=== PATIENT | female | born 1990 | race Caucasian/White ===

== ENCOUNTER 2020-02-14 22:25 | Emergency (ER) | payer OTHER ==
[~2020-02-14] VITALS: Ht 172.7 cm; Wt 102.2 kg
[2020-02-14 22:44] LABS: BASO # 0.2 x10^3/uL (0.0-0.2); BASO % 1 % (0-3); EOS % 0 % (0-3); HEMATOCRIT 44.6 % (36.0-47.0); HEMOGLOBIN 15.8 g/dL (12.0-15.5); LYMPH # 3.4 x10^3/uL (1.0-4.8); LYMPH % 26 % (24-48); MEAN CORPUSCULAR HEMOGLOBIN 30 pg (25-35); MEAN CORPUSCULAR HGB CONC 36 g/dL (31-37); MEAN CORPUSCULAR VOLUME 85 fL (79-100); MONO # 0.9 x10^3/uL (0.0-1.1); MONO % 7 % (0-9); NEUT # 8.9 x10^3/uL (1.8-7.7); NEUT % 66 % (31-73); PLATELET COUNT 268 x10^3/uL (140-400); RED BLOOD COUNT 5.22 x10^6/uL (3.50-5.40); RED CELL DISTRIBUTION WIDTH 13.1 % (11.5-14.5); WHITE BLOOD COUNT 13.5 x10^3/uL (4.0-11.0)
[2020-02-14 22:55] LABS: CALCIUM 8.8 mg/dL (8.5-10.1); CREATININE 1.1 mg/dL (0.6-1.0); GFR 59.1; POTASSIUM 3.2 mmol/L (3.5-5.1)
[2020-02-14 23:00] LABS: ALBUMIN 3.6 g/dL (3.4-5.0); ALBUMIN/GLOBULIN RATIO 0.9 (1.0-1.7); TOTAL BILIRUBIN 0.8 mg/dL (0.2-1.0); TOTAL PROTEIN 7.8 g/dL (6.4-8.2)
[2020-02-14] MEDS ORDERED: FAMOTIDINE 20 MG/2 ML VIAL IVP ONE (23:30)
[2020-02-14] MEDS ORDERED: diazePAM 2 MG TABLET PO ONE (23:30)
[2020-02-14] MEDS ORDERED: IV NORMAL SALINE 1000ML BAG 1,000 ML IV ONE (23:30)
--- NOTE | 2020-02-15 00:05 | PHYS DOC ---
Past Medical History Past Medical History: No Pertinent History Past Surgical History: No Surgical History Smoking Status: Never Smoker Alcohol Use: None General Adult EDM: Chief Complaint: VOMITING IN HPI: HPI: Patient is a 29 year old female who is currently G2, presents with a chief complaint of left-sided neck pain. Patient has a past medical history of hyperemesis gravidarum. She is currently on Zofran. Patient states she has been vomiting all day. She states she vomited prior to arrival and shortly after started experiencing left-sided neck spasms. Patient denies any pelvic complaints. Review of Systems: Review of Systems: Constitutional: Denies fever or chills. [] Eyes: Denies change in visual acuity. [] HENT: Denies nasal congestion or sore throat. [] Respiratory: Denies cough or shortness of breath. [] Cardiovascular: Denies chest pain or edema. [] GI: Denies abdominal pain, , bloody stools or diarrhea. [positive nausea and vomiting] : Denies dysuria. [ppsitive ] Musculoskeletal: Denies back pain or joint pain. [POSITIVE muscle spasm] Integument: Denies rash. [] Neurologic: Denies headache, focal weakness or sensory changes. [] Endocrine: Denies polyuria or polydipsia. [] Lymphatic: Denies swollen glands. [] Psychiatric: Denies depression or anxiety. [] Heart Score: Risk Factors: Risk Factors: DM, Current or recent (<one month) smoker, HTN, HLP, family history of CAD, obesity. Risk Scores: Score 0 - 3: 2.5% MACE over next 6 weeks - Discharge Home Score 4 - 6: 20.3% MACE over next 6 weeks - Admit for Clinical Observation Score 7 - 10: 72.7% MACE over next 6 weeks - Early Invasive Strategies Current Medications: Current Medications Medications (Trade) Dose Ordered Sig/Jina Start Time Stop Time Status Last Admin Dose Admin Diazepam (Valium) 2 mg 1X ONCE 02/14/20 23:30 02/14/20 23:31 DC 02/14/20 23:07 2 MG Famotidine (Pepcid Vial) 20 mg 1X ONCE 02/14/20 23:30 02/14/20 23:31 DC 02/14/20 23:06 20 MG Sodium Chloride 1,000 ml @ 1,000 mls/hr 1X ONCE 02/14/20 23:30 02/15/20 00:29 02/14/20 23:07 1,000 MLS/HR Allergies: Allergies: Allergies Coded Allergies Type Severity Reaction Last Updated Verified No Known Drug Allergies 02/14/20 No Physical Exam: PE: Constitutional: Well developed, well nourished, no acute distress, non-toxic appearance. [] HENT: Normocephalic, atraumatic, bilateral external ears normal, oropharynx moist, no oral exudates, nose normal. [] Eyes: PERRLA, EOMI, conjunctiva normal, no discharge. [] Neck: tenderness of palpation, muscle spasms Cardiovascular:Heart rate regular rhythm, no murmur [] Lungs & Thorax: Bilateral breath sounds clear to auscultation [] Abdomen: Bowel sounds normal, soft, no tenderness, no masses, no pulsatile masses. [] Skin: Warm, dry, no erythema, no rash. [] Back: No tenderness, no CVA tenderness. [] Extremities: No tenderness, no cyanosis, no clubbing, ROM intact, no edema. [] Neurologic: Alert and oriented X 3, normal motor function, normal sensory function, no focal deficits noted. [] Psychologic: Affect normal, judgement normal, mood normal. [] Current Patient Data: Labs: Laboratory Tests Test 02/14/20 22:28 White Blood Count 13.5 x10^3/uL (4.0-11.0) H Red Blood Count 5.22 x10^6/uL (3.50-5.40) Hemoglobin 15.8 g/dL (12.0-15.5) H Hematocrit 44.6 % (36.0-47.0) Mean Corpuscular Volume 85 fL (79-100) Mean Corpuscular Hemoglobin 30 pg (25-35) Mean Corpuscular Hemoglobin Concent 36 g/dL (31-37) Red Cell Distribution Width 13.1 % (11.5-14.5) Platelet Count 268 x10^3/uL (140-400) Neutrophils (%) (Auto) 66 % (31-73) Lymphocytes (%) (Auto) 26 % (24-48) Monocytes (%) (Auto) 7 % (0-9) Eosinophils (%) (Auto) 0 % (0-3) Basophils (%) (Auto) 1 % (0-3) Neutrophils # (Auto) 8.9 x10^3/uL (1.8-7.7) H Lymphocytes # (Auto) 3.4 x10^3/uL (1.0-4.8) Monocytes # (Auto) 0.9 x10^3/uL (0.0-1.1) Eosinophils # (Auto) 0.0 x10^3/uL (0.0-0.7) Basophils # (Auto) 0.2 x10^3/uL (0.0-0.2) Maternal Serum HCG Beta Subunit 809350 mIU/mL (0-5) H Sodium Level 135 mmol/L (136-145) L Potassium Level 3.2 mmol/L (3.5-5.1) L Chloride Level 97 mmol/L (98-107) L Carbon Dioxide Level 22 mmol/L (21-32) Anion Gap 16 (6-14) H Blood Urea Nitrogen 5 mg/dL (7-20) L Creatinine 1.1 mg/dL (0.6-1.0) H Estimated GFR (Cockcroft-Gault) 59.1 BUN/Creatinine Ratio 5 (6-20) L Glucose Level 116 mg/dL (70-99) H Calcium Level 8.8 mg/dL (8.5-10.1) Total Bilirubin 0.8 mg/dL (0.2-1.0) Aspartate Amino Transferase (AST) 34 U/L (15-37) Alanine Aminotransferase (ALT) 87 U/L (14-59) H Alkaline Phosphatase 101 U/L (46-116) Total Protein 7.8 g/dL (6.4-8.2) Albumin 3.6 g/dL (3.4-5.0) Albumin/Globulin Ratio 0.9 (1.0-1.7) L Laboratory Tests 02/14/20 22:28 Laboratory Tests 02/14/20 22:28 Vital Signs: Vital Signs Date Time Temp Pulse Resp B/P (MAP) Pulse Ox O2 Delivery O2 Flow Rate FiO2 02/14/20 22:25 98.5 118 20 157/86 (109) 98 Room Air 98.5 EKG: EKG: [] Radiology/Procedures: Radiology/Procedures: [] Course & Med Decision Making: Course & Med Decision Making Pertinent Labs and Imaging studies reviewed. (See chart for details) [] Was evaluated for chief complaint. Work-up consisted of laboratory analysis. Results reviewed and discussed with patient. Patient was found to have a potassium slightly decreased. Patient advised to continue taking her vitamins. Patient without any episodes of vomiting in the emergency department. Patient advised to continue taking her Zofran. Treatment included Tylenol for pain. Valium and Ativan for muscle spasms. Post treatment patient states she feels improved. Patient will be discharged home on Valium. Patient given p recautions regarding narcotic use during she is in full understanding of the risks such as dependence insomnia overuse leading to overdose. Dragon Disclaimer: Dragon Disclaimer: This electronic medical record was generated, in whole or in part, using a voice recognition dictation system. Departure Departure Impression: Primary Impression: Neck muscle spasm Additional Impressions: Hyperemesis Hypokalemia Disposition: HOME, SELF-CARE Condition: STABLE Referrals: SILVIA SARGENT MD (PCP) Patient Instructions: Hypokalemia, Muscle Strain, Spasticity Scripts Diazepam (VALIUM) 5 Mg Tablet 5 MG PO TID for spasm, #14 TAB Prov: DELVIN MONAHAN DO 02/15/20 Justicifation of Admission Dx: Justifications for Admission: Justification of Admission Dx: N/A DELVIN MONAHAN DO Feb 15, 2020 00:05
[2020-02-15 00:13] LABS: BILIRUBIN,URINE NEGATIVE (NEG); CLARITY,URINE CLEAR; COLOR,URINE YELLOW; NITRITE,URINE NEGATIVE (NEG); PH,URINE 6.5 (<5.0-8.0); PROTEIN,URINE NEGATIVE (NEG-TRACE); UROBILINOGEN,URINE 0.2 mg/dL (0.2 mg/dL)
[2020-02-15 00:23] LABS: AMORPHOUS SEDIMENT,UR PRESENT /HPF; RBC,URINE 0 /HPF (0-2); SQUAMOUS EPITHELIAL CELL,UR MOD /LPF; YEAST,URINE PRESENT /HPF
[2020-02-15 00:25] LABS: BACTERIA,URINE 0 /HPF (0-FEW)
[2020-02-15] MEDS ORDERED: DIAZ5TAB PO (00:50)
[2020-02-15 01:45] VITALS: BP 133/83
[2020-02-15] MEDS ORDERED: CEPH-264 PO (17:45)
[2020-02-15] MEDS ORDERED: PROM25SU33 RC (17:45)
== END 2020-02-15 01:49 | disposition home or self-care (01) ==
LOC: ER 22:25
DX: O21.9 Vomiting of pregnancy, unspecified (principal); M62.838 Other muscle spasm; M54.2 Cervicalgia; E87.6 Hypokalemia; Z79.899 Other long term (current) drug therapy; Z3A.00 Weeks of gestation of pregnancy not specified
CPT/HCPCS: 36415; 80053; 81001; 81025; 84702; 85025; 87086; 96361; 96374; 96375; 99285; J2060; J3490; J7030

== ENCOUNTER 2020-02-15 15:12 | Emergency (ER) | payer OTHER ==
[~2020-02-15] VITALS: Ht 172.7 cm; Wt 105.0 kg
[~2020-02-15 15:12] MED LIST: DIAZ5TAB PO
--- NOTE | 2020-02-15 15:57 | PHYS DOC ---
Past Medical History Past Medical History: No Pertinent History Past Surgical History: No Surgical History Smoking Status: Never Smoker Alcohol Use: None General Adult EDM: Chief Complaint: VOMITING IN HPI: HPI: Patient is a 29 year old female who is 9 weeks , presented to ER today for evaluation of nausea and vomiting. Patient denies any pelvic pain, no abdominal pain. Patient said this is her second . Patient was seen here last night for the same problem she is currently on Zofran and Reglan. Patient continues to have nausea vomiting so she went to see her [facility] [employer] doctor today who then sent her here so he can get her admitted to hospital for IV fluid. Patient denies any fever, no cough, no exposure to anybody who tested positive for COVID-19. Review of Systems: Review of Systems: Constitutional: Denies fever or chills. [] Eyes: Denies change in visual acuity. [] HENT: Denies nasal congestion or sore throat. [] Respiratory: Denies cough or shortness of breath. [] Cardiovascular: Denies chest pain or edema. [] GI: Denies abdominal pain, positive for nausea and vomiting : Denies dysuria. [] Musculoskeletal: Denies back pain or joint pain. [] Integument: Denies rash. [] Neurologic: Denies headache, focal weakness or sensory changes. [] Endocrine: Denies polyuria or polydipsia. [] Lymphatic: Denies swollen glands. [] Psychiatric: Denies depression or anxiety. [] Heart Score: Risk Factors: Risk Factors: DM, Current or recent (<one month) smoker, HTN, HLP, family history of CAD, obesity. Risk Scores: Score 0 - 3: 2.5% MACE over next 6 weeks - Discharge Home Score 4 - 6: 20.3% MACE over next 6 weeks - Admit for Clinical Observation Score 7 - 10: 72.7% MACE over next 6 weeks - Early Invasive Strategies Allergies: Allergies: Allergies Coded Allergies Type Severity Reaction Last Updated Verified No Known Drug Allergies 02/14/20 No Physical Exam: PE: Constitutional: Well developed, well nourished, no acute distress, non-toxic appearance. [] HENT: Normocephalic, atraumatic, bilateral external ears normal, oropharynx moist, no oral exudates, nose normal. [] Eyes: PERRLA, EOMI, conjunctiva normal, no discharge. [] Neck: Normal range of motion, no tenderness, supple, no stridor. [] Cardiovascular:Heart rate regular rhythm, no murmur [] Lungs & Thorax: Bilateral breath sounds clear to auscultation [] Abdomen: Bowel sounds normal, soft, no tenderness, no masses, no pulsatile masses. [] Skin: Warm, dry, no erythema, no rash. [] Back: No tenderness, no CVA tenderness. [] Extremities: No tenderness, no cyanosis, no clubbing, ROM intact, no edema. [] Neurologic: Alert and oriented X 3, normal motor function, normal sensory function, no focal deficits noted. [] Psychologic: Affect normal, judgement normal, mood normal. [] Current Patient Data: Labs: Laboratory Tests Test 02/15/20 16:00 02/15/20 16:06 White Blood Count 9.9 x10^3/uL Red Blood Count 4.88 x10^6/uL Hemoglobin 14.8 g/dL Hematocrit 41.5 % Mean Corpuscular Volume 85 fL Mean Corpuscular Hemoglobin 30 pg Mean Corpuscular Hemoglobin Concent 36 g/dL Red Cell Distribution Width 13.0 % Platelet Count 225 x10^3/uL Neutrophils (%) (Auto) 76 % Lymphocytes (%) (Auto) 17 % Monocytes (%) (Auto) 6 % Eosinophils (%) (Auto) 0 % Basophils (%) (Auto) 1 % Neutrophils # (Auto) 7.5 x10^3/uL Lymphocytes # (Auto) 1.7 x10^3/uL Monocytes # (Auto) 0.6 x10^3/uL Eosinophils # (Auto) 0.0 x10^3/uL Basophils # (Auto) 0.1 x10^3/uL Urine Collection Type Unknown Urine Color Margaret Urine Clarity Clear Urine pH 6.5 Urine Specific Garfield 1.025 Urine Protein 30 mg/dL Urine Glucose (UA) Negative mg/dL Urine Ketones (Stick) >=80 mg/dL Urine Blood Negative Urine Nitrite Negative Urine Bilirubin Small Urine Urobilinogen Dipstick 1.0 mg/dL Urine Leukocyte Esterase Moderate Urine RBC Occ /HPF Urine WBC 11-20 /HPF Urine Squamous Epithelial Cells Many /LPF Urine Bacteria Moderate /HPF Urine Mucus Marked /LPF Urine Yeast Present /HPF Sodium Level 134 mmol/L Potassium Level 3.4 mmol/L Chloride Level 100 mmol/L Carbon Dioxide Level 23 mmol/L Anion Gap 11 Blood Urea Nitrogen 6 mg/dL Creatinine 0.8 mg/dL Estimated GFR (Cockcroft-Gault) 85.4 BUN/Creatinine Ratio 8 Glucose Level 124 mg/dL Calcium Level 8.7 mg/dL Magnesium Level 1.8 mg/dL Total Bilirubin 1.0 mg/dL Aspartate Amino Transf (AST/SGOT) 25 U/L Alanine Aminotransferase (ALT/SGPT) 72 U/L Alkaline Phosphatase 91 U/L Total Protein 7.2 g/dL Albumin 3.3 g/dL Albumin/Globulin Ratio 0.8 Bedside Urine HCG, Qualitative Hcg positive Current Medications Medications (Trade) Dose Ordered Sig/Jina Route PRN Reason Start Time Stop Time Status Last Admin Dose Admin Sodium Chloride 1,000 ml @ 1,000 mls/hr 1X ONCE IV 02/15/20 16:00 02/15/20 16:59 DC 02/15/20 16:21 Ondansetron HCl (Zofran) 4 mg 1X ONCE IVP 02/15/20 16:00 02/15/20 16:01 DC 02/15/20 16:21 Ceftriaxone Sodium (Rocephin) 1 gm 1X ONCE IVP 02/15/20 17:00 02/15/20 17:01 DC 02/15/20 17:00 Vital Signs: Laboratory Tests Test 02/15/20 16:00 02/15/20 16:06 White Blood Count 9.9 x10^3/uL Red Blood Count 4.88 x10^6/uL Hemoglobin 14.8 g/dL Hematocrit 41.5 % Mean Corpuscular Volume 85 fL Mean Corpuscular Hemoglobin 30 pg Mean Corpuscular Hemoglobin Concent 36 g/dL Red Cell Distribution Width 13.0 % Platelet Count 225 x10^3/uL Neutrophils (%) (Auto) 76 % Lymphocytes (%) (Auto) 17 % Monocytes (%) (Auto) 6 % Eosinophils (%) (Auto) 0 % Basophils (%) (Auto) 1 % Neutrophils # (Auto) 7.5 x10^3/uL Lymphocytes # (Auto) 1.7 x10^3/uL Monocytes # (Auto) 0.6 x10^3/uL Eosinophils # (Auto) 0.0 x10^3/uL Basophils # (Auto) 0.1 x10^3/uL Urine Collection Type Unknown Urine Color Margaret Urine Clarity Clear Urine pH 6.5 Urine Specific Garfield 1.025 Urine Protein 30 mg/dL Urine Glucose (UA) Negative mg/dL Urine Ketones (Stick) >=80 mg/dL Urine Blood Negative Urine Nitrite Negative Urine Bilirubin Small Urine Urobilinogen Dipstick 1.0 mg/dL Urine Leukocyte Esterase Moderate Urine RBC Occ /HPF Urine WBC 11-20 /HPF Urine Squamous Epithelial Cells Many /LPF Urine Bacteria Moderate /HPF Urine Mucus Marked /LPF Urine Yeast Present /HPF Sodium Level 134 mmol/L Potassium Level 3.4 mmol/L Chloride Level 100 mmol/L Carbon Dioxide Level 23 mmol/L Anion Gap 11 Blood Urea Nitrogen 6 mg/dL Creatinine 0.8 mg/dL Estimated GFR (Cockcroft-Gault) 85.4 BUN/Creatinine Ratio 8 Glucose Level 124 mg/dL Calcium Level 8.7 mg/dL Magnesium Level 1.8 mg/dL Total Bilirubin 1.0 mg/dL Aspartate Amino Transf (AST/SGOT) 25 U/L Alanine Aminotransferase (ALT/SGPT) 72 U/L Alkaline Phosphatase 91 U/L Total Protein 7.2 g/dL Albumin 3.3 g/dL Albumin/Globulin Ratio 0.8 Bedside Urine HCG, Qualitative Hcg positive Current Medications Medications (Trade) Dose Ordered Sig/Jina Route PRN Reason Start Time Stop Time Status Last Admin Dose Admin Sodium Chloride 1,000 ml @ 1,000 mls/hr 1X ONCE IV 02/15/20 16:00 02/15/20 16:59 DC 02/15/20 16:21 Ondansetron HCl (Zofran) 4 mg 1X ONCE IVP 02/15/20 16:00 02/15/20 16:01 DC 02/15/20 16:21 Ceftriaxone Sodium (Rocephin) 1 gm 1X ONCE IVP 02/15/20 17:00 02/15/20 17:01 DC 02/15/20 17:00 EKG: EKG: [] Radiology/Procedures: Radiology/Procedures: [] Course & Med Decision Making: Course & Med Decision Making Pertinent Labs and Imaging studies reviewed. (See chart for details) Patient is a 29-year-old female who IS 9 weeks , was evaluated in ER due to nausea vomiting. Patient was given IV fluid in ER, she feels much better. Discussed with OB doctor on-call Dr. Koo who recommended to discharge patient home with prescription for Phenergan suppository and treat her UTI. Patient will need to call her OB.[facility] [employer] doctor for follow up next week. Uzma Disclaimer: Uzma Disclaimer: This electronic medical record was generated, in whole or in part, using a voice recognition dictation system. Departure Departure Impression: Primary Impression: Hyperemesis gravidarum Additional Impression: UTI (urinary tract infection) Disposition: HOME, SELF-CARE Condition: IMPROVED Referrals: SILVIA SARGENT MD (PCP) MORENO GROVES Jr, MD PLEASE CALL [phone] DOCTOR FOR FOLLOW UP NEXT WEEK. Patient Instructions: Diet - Hyperemesis Gravidarum, Hyperemesis Gravidarum, Urinary Tract Infection Additional Instructions: Thank you for visiting our Emergency Department. We appreciate you trusting us with your care. If any additional problems come up don't hesitate to return to visit us. Please follow up with your primary care provider so they can plan additional care if needed and know about the problem that you had. If symptoms worsen come back to the Emergency Department. Any concerning symptoms that start such as chest pain, shortness of air, weakness or numbness on one side of the body, running high fevers or any other concerning symptoms return to the ER. Scripts Cephalexin (KEFLEX) 500 Mg Capsule 1 CAP PO QID for 7 Days, #28 CAP 0 Refills Prov: LORENA IZAGUIRRE DO 02/15/20 Promethazine Hcl (PROMETHAZINE HCL) 25 Mg Supp.rect -Aug SUPP RC QID PRN for NAUSEA for 3 Days, #20 SUPP 0 Refills Prov: LORENA IZAGUIRRE DO 02/15/20 Justicifation of Admission Dx: Justifications for Admission: Justification of Admission Dx: N/A LORENA IZAGUIRRE DO Feb 15, 2020 15:57
[2020-02-15] MEDS ORDERED: ONDANSETRON PF 4 MG/2 ML VIAL. IVP ONE (16:00)
[2020-02-15] MEDS ORDERED: IV NORMAL SALINE 1000ML BAG 1,000 ML IV ONE (16:00)
[2020-02-15 16:08] LABS: BASO # 0.1 x10^3/uL (0.0-0.2); BASO % 1 % (0-3); EOS % 0 % (0-3); HEMATOCRIT 41.5 % (36.0-47.0); HEMOGLOBIN 14.8 g/dL (12.0-15.5); LYMPH # 1.7 x10^3/uL (1.0-4.8); LYMPH % 17 % (24-48); MEAN CORPUSCULAR HEMOGLOBIN 30 pg (25-35); MEAN CORPUSCULAR HGB CONC 36 g/dL (31-37); MEAN CORPUSCULAR VOLUME 85 fL (79-100); MONO # 0.6 x10^3/uL (0.0-1.1); MONO % 6 % (0-9); NEUT # 7.5 x10^3/uL (1.8-7.7); NEUT % 76 % (31-73); PLATELET COUNT 225 x10^3/uL (140-400); RED BLOOD COUNT 4.88 x10^6/uL (3.50-5.40); WHITE BLOOD COUNT 9.9 x10^3/uL (4.0-11.0)
[2020-02-15 16:10] LABS: BILIRUBIN,URINE SMALL (NEG); CLARITY,URINE CLEAR; COLOR,URINE AMBER; NITRITE,URINE NEGATIVE (NEG); PH,URINE 6.5 (<5.0-8.0); PROTEIN,URINE 30 mg/dL (NEG-TRACE)
[2020-02-15 16:13] LABS: SQUAMOUS EPITHELIAL CELL,UR MANY /LPF
[2020-02-15 16:14] LABS: BACTERIA,URINE MODERATE /HPF (0-FEW); RBC,URINE OCC /HPF (0-2); YEAST,URINE PRESENT /HPF
[2020-02-15 16:24] LABS: ALBUMIN 3.3 g/dL (3.4-5.0); ALBUMIN/GLOBULIN RATIO 0.8 (1.0-1.7); CALCIUM 8.7 mg/dL (8.5-10.1); CREATININE 0.8 mg/dL (0.6-1.0); GFR 85.4; MAGNESIUM 1.8 mg/dL (1.8-2.4); POTASSIUM 3.4 mmol/L (3.5-5.1); TOTAL PROTEIN 7.2 g/dL (6.4-8.2)
[2020-02-15] MEDS ORDERED: cefTRIAXone IV Push 1 GM VIAL. IVP ONE (17:00)
[2020-02-15] MEDS ORDERED: PROM25SU33 RC (17:45)
[2020-02-15] MEDS ORDERED: CEPH-264 PO (17:45)
[2020-02-15 18:00] VITALS: BP 147/77
== END 2020-02-15 18:50 | disposition home or self-care (01) ==
LOC: ER 15:12
DX: O21.0 Mild hyperemesis gravidarum (principal); O23.41 Unspecified infection of urinary tract in pregnancy, first trimester; Z3A.09 9 weeks gestation of pregnancy
CPT/HCPCS: 36415; 80053; 81001; 81025; 83735; 85025; 87086; 96361; 96374; 96375; 99284; J0696; J2405; J7030

== ENCOUNTER 2020-02-27 11:12 | Inpatient (IN) | payer OTHER ==
[~2020-02-27] VITALS: Ht 172.7 cm; Wt 98.2 kg
[~2020-02-27 11:12] MED LIST changes: +CEPH-264 PO; +PROM25SU33 RC
[2020-02-27] MEDS ORDERED: diphenhydrAMINE HCL 25 MG CAPSULE PO PRN (11:45)
[2020-02-27] MEDS ORDERED: IV RINGERS,LACTATED 1000ML 1,000 ML IV SCH (11:45)
[2020-02-27] MEDS ORDERED: IV RINGERS,LACTATED 1000ML 1,000 ML IV ONE (11:45)
[2020-02-27] MEDS ORDERED: PROMETHAZINE 25 MG SUPP.RECT. PR PRN ×2 (11:45→12:30)
[2020-02-27 12:00] VITALS: BP 122/82
[2020-02-27] MEDS: ONDANSETRON PF 4 MG/2 ML VIAL. IVP SCH ×2 (12:33→17:21)
[2020-02-27] MEDS ORDERED: PROMETHAZINE 25 MG SUPP.RECT. PR SCH (13:00)
--- NOTE | 2020-02-27 13:13 | PDOC1 ---
OB - History Hx of Present Care: Good Care Ultrasounds: Other (first trimester sono normal.) Obstetrical Complications: Hyperemesis (electrolyte imbalance) Past Family/Social History * Past Medical, Surgical, Family and Obstetric Histories reviewed from chart. Rubella: Immune RPR/VDRL: Negative GBS Status: Unknown HBsAG: Negative OB - Chief Complaint & HPI Date of Admission: Date of Admission: Feb 27, 2020 at 11:12 Chief Complaint/History : 4 Para: 1 EGA: 11 Reason for admission: observation, other (hyperemesis) Admission Nurse Assessment Rev: Yes OB - Admission Exam Physical Exam HEENT: Other (dry mucous membranes) Heart: Normal S1, Normal S2 Lungs: Clear Abdomen: Gravid, Non tender, Soft Extremities: No tenderness or swelling Reflexes: Normal Cervical Dilatation: None Effacement: 0% Station: Ballotable Membranes: Intact Heart Rate: Normal Contractions on Admission: None Text A: 11 wks IUP Hyperemesis Gravidarum Electrolyte imbalance P: Admit for IV fluid hydration and electrolyte replacement. Schedule Zofran, Reglan and Phenergan suppository. Recheck labs in am. MORENO GROVES Jr, MD Feb 27, 2020 13:13
[2020-02-27] MEDS ORDERED: METOCLOPRAMIDE HCL 10 MG/2 ML VIAL. IVP SCH (14:00)
[2020-02-27 14:05] LABS: BASO % 1 % (0-3); EOS % 0 % (0-3); HEMOGLOBIN 13.7 g/dL (12.0-15.5); LYMPH # 1.4 x10^3/uL (1.0-4.8); LYMPH % 20 % (24-48); MEAN CORPUSCULAR HEMOGLOBIN 31 pg (25-35); MEAN CORPUSCULAR HGB CONC 36 g/dL (31-37); MEAN CORPUSCULAR VOLUME 85 fL (79-100); MONO # 0.5 x10^3/uL (0.0-1.1); MONO % 7 % (0-9); NEUT # 5.4 x10^3/uL (1.8-7.7); NEUT % 73 % (31-73); PLATELET COUNT 193 x10^3/uL (140-400); RED BLOOD COUNT 4.46 x10^6/uL (3.50-5.40); RED CELL DISTRIBUTION WIDTH 13.1 % (11.5-14.5); WHITE BLOOD COUNT 7.4 x10^3/uL (4.0-11.0)
[2020-02-27 14:19] LABS: ALBUMIN 2.7 g/dL (3.4-5.0); ALBUMIN/GLOBULIN RATIO 0.7 (1.0-1.7); CALCIUM 8.5 mg/dL (8.5-10.1); CREATININE 0.8 mg/dL (0.6-1.0); GFR 85.4; POTASSIUM 3.2 mmol/L (3.5-5.1); TOTAL PROTEIN 6.5 g/dL (6.4-8.2)
[2020-02-27 14:51] VITALS: BP 113/75
[2020-02-27] MEDS ORDERED: POTASSIUM CHLORIDE 20 MEQ TABLET.ER. PO ONE (17:00)
[2020-02-27] MEDS ORDERED: PROM25SU33 RC (17:04)
[2020-02-27 17:30] VITALS: BP 131/78
--- NOTE | 2020-02-27 17:40 | NUR ---
Pt. dc'd to home with family. Pt. ambulated to personal vehicle. DC instructions given, v/u
== END 2020-02-27 17:40 | disposition home or self-care (01) | DRG 833 ==
LOC: 3 NORTH 11:12
PROVIDERS: ADMIT Obstetrics & Gynecology; ATTEND Obstetrics & Gynecology
DX: O21.1 Hyperemesis gravidarum with metabolic disturbance (principal); Z3A.11 11 weeks gestation of pregnancy
CPT/HCPCS: 36415; 80053; 82150; 83690; 85025; J2405; J2765; J7120; G0378

== ENCOUNTER → 2020-05-09 | Outpatient (CLI) | payer OTHER ==
--- NOTE | 2020-05-09 17:47 | KCIC ---
Clinical indications: Uterine size and date discrepancy. COMPARISON: None available. Findings: A single intrauterine fetus is seen in breech position. heart rate is 143 beats per minute. BPD is 4.62 cm which equals 20 weeks 0 days. HC is 17.67 cm which equals 20 weeks 1 day. AC is 15.92 cm which equals 21 weeks 0 days. FL is 3.28 cm which equals 20 weeks 2 days. Average gestational age by ultrasound is 20 weeks 3 days +/- 12 days with an EDC of September 23, 2020. Estimated weight is 0 lbs and 13 oz. The resolution of the anatomy is poor which may be related to patient's larger body habitus or position of the fetus. A four-chamber heart and three-vessel cord are identified. The resolution of the heartbeat is very difficult and the resolution of the kidneys is very difficult. stomach and urinary bladder are identified. Cord insertion site is unremarkable. The intracranial structures morphologically normal. Resolution of the spine is difficult. The ventricular trigone measurement is 7 mm. Cisterna magna measurement is 5 mm. Four extremities are identified. JULIAN using the four quadrant method is 10.1 cm. Cervical length is 6.4 cm. A grade 0 anterior placenta is seen. No placenta previa and no placenta abruptio is identified. The maternal ovaries are not visualized. Impression: Single IUP with gestational age of 20 weeks 3 days. Electronically signed by: Niall Gaffney MD (05/09/2020 5:44 PM) [id number]
== END ==
LOC: KCIC US 12:20
PROVIDERS: ATTEND Obstetrics & Gynecology
DX: O26.842 Uterine size-date discrepancy, second trimester (principal); Z3A.20 20 weeks gestation of pregnancy
CPT/HCPCS: 76805